=== PATIENT | male | born 1970 | race Caucasian/White ===

== ENCOUNTER 2016-06-24 14:46 | Inpatient (IN) | payer OTHER ==
[~2016-06-24] VITALS: Ht 175.3 cm; Wt 83.0 kg
[2016-06-24 21:53] VITALS: BP 138/72
[2016-06-25 07:42] VITALS: BP 108/64
[2016-06-25] MEDS ORDERED: LAMOTRIGINE100 MG PO (08:42)
[2016-06-25] MEDS ORDERED: BENZTROPINE MESY1 MG PO (08:45)
[2016-06-25] MEDS ORDERED: BUPROPION HCL100 MG PO ×2 (08:47→08:49)
[2016-06-25] MEDS ORDERED: HALDOL5 MG PO (08:51)
[2016-06-25] MEDS ORDERED: LAMICTAL100 MG PO (08:54)
[2016-06-25] MEDS ORDERED: LAMICTAL200 MG PO (08:55)
[2016-06-25] MEDS ORDERED: BUPROPION HCL150 M2 PO (14:27)
[2016-06-25 16:15] VITALS: BP 122/70
[2016-06-26 07:14] VITALS: BP 111/67
[2016-06-26 15:50] VITALS: BP 113/63
[2016-06-27 09:18] VITALS: BP 107/55
[2016-06-27 15:55] VITALS: BP 103/59
[2016-06-28 07:31] VITALS: BP 101/57
[2016-06-28] MEDS ORDERED: BUPROPION HCL150 M2 PO (10:00)
[2016-06-28] MEDS ORDERED: LAMOTRIGINE200 MG PO (10:00)
[2016-06-28] MEDS ORDERED: BENZTROPINE MESY1 MG PO (10:00)
[2016-06-28] MEDS ORDERED: HALDOL5 MG PO (10:00)
[2016-06-28] MEDS ORDERED: LAMOTRIGINE100 MG PO (10:00)
[2016-06-28] MEDS ORDERED: PRAVASTATIN SOD40 MG PO (10:00)
== END 2016-06-28 12:31 | disposition home or self-care (01) | DRG 881 ==
LOC: 1WEST 14:46
DX: F32.9 Major depressive disorder, single episode, unspecified (principal); R45.851 Suicidal ideations; R45.850 Homicidal ideations; E78.5 Hyperlipidemia, unspecified; L40.9 Psoriasis, unspecified; F17.210 Nicotine dependence, cigarettes, uncomplicated
CPT/HCPCS: 97167 GO